=== PATIENT | male | born 1990 | race Caucasian/White ===

== ENCOUNTER 2016-12-14 13:43 | Emergency (ER) | payer OTHER ==
[~2016-12-14 13:43] MED LIST: ISOSORBIDE MONO30 MG PO; LOPRESSOR25 MG PO; ULTRAM EQIVALEN50 MG PO
--- NOTE | 2016-12-14 15:05 | ED ORDER SUMMARY ---
..... Patient: YANELIS ALEGRE OrderSheet [facility] VisitID: [id number] [address] [place] [address] 26y, M Registration Date/Time: 12/14/2016 ORDER SHEET Weight: 81.6 kg (stated) Allergies: No Known Drug Allergy GENERAL ORDERS: Group Counselor (Continuous) (14:04 12/14/2016 HBivens A.R.N.P.) (14:06 MCook R.N.) (14:06 KHoerner) CBC w Diff Urgent (14:04 12/14/2016 HBivens A.R.N.P.) (14:06 MCook R.N.) (Ack 14:06 KHoerner) CMP Urgent (14:04 12/14/2016 HBivens A.R.N.P.) (14:06 MCook R.N.) (Ack 14:06 KHoerner) UA-Culture if indicated Urgent (14:04 12/14/2016 HBivens A.R.N.P.) (Ack 14:06 KHoerner) (Sent 14:45 MCook R.N.) (14:45 MCook R.N.) D-Dimer Urgent (14:04 12/14/2016 HBivens A.R.N.P.) (14:06 MCook R.N.) (Ack 14:06 KHoerner) Amylase Urgent (14:04 12/14/2016 HBivens A.R.N.P.) (14:06 MCook R.N.) (Ack 14:06 KHoerner) EKG - ER Stat (15:00 12/14/2016 LNations ER Tech1 per protocol) (15:00 LNations ER Tech1) MEDICATION ORDERS: GI Cocktail WHITE PO 30 mL with Lidocaine Viscous Mouth/Throat 15 mL, Maalox Plus Oral 15 mL (NOW) (14:04 12/14/2016 HBivens A.R.N.P.) (14:17 MCook R.N.) IV FLUIDS: IV Saline Lock (14:04 12/14/2016 HBivens A.R.N.P.) (14:17 Cade R.N.) Protonix IVP 40mg 40 mg (Mix in NS 10ml over 2min) (14:05 12/14/2016 HBivens A.R.N.P.) (14:14 Cade R.N.) ORDER SHEET NOTES: [Electronically signed by Uriel Villanueva R.N. (16:15 12/14/2016)] [Electronically signed by Juany Horton.R.N.PBenigno (16:23 12/14/2016)] [Electronically locked/signed by Uriel Villanueva R.N. (16:15 12/14/2016)]
--- NOTE | 2016-12-14 15:05 | ED ORDER SUMMARY ---
..... Patient: YANELIS ALEGRE OrderSheet [facility] VisitID: [id number] [address] [place] [address] 26y, M Registration Date/Time: 12/14/2016 ORDER SHEET Weight: 81.6 kg (stated) Allergies: No Known Drug Allergy GENERAL ORDERS: Landing Signal Officer (Continuous) (14:04 12/14/2016 HBivens A.R.N.P.) (14:06 MCook R.N.) (14:06 KHoerner) CBC w Diff Urgent (14:04 12/14/2016 HBivens A.R.N.P.) (14:06 MCook R.N.) (Ack 14:06 KHoerner) CMP Urgent (14:04 12/14/2016 HBivens A.R.N.P.) (14:06 MCook R.N.) (Ack 14:06 KHoerner) UA-Culture if indicated Urgent (14:04 12/14/2016 HBivens A.R.N.P.) (Ack 14:06 KHoerner) (Sent 14:45 MCook R.N.) (14:45 MCook R.N.) D-Dimer Urgent (14:04 12/14/2016 HBivens A.R.N.P.) (14:06 MCook R.N.) (Ack 14:06 KHoerner) Amylase Urgent (14:04 12/14/2016 HBivens A.R.N.P.) (14:06 MCook R.N.) (Ack 14:06 KHoerner) EKG - ER Stat (15:00 12/14/2016 LNations ER Tech1 per protocol) (15:00 LNations ER Tech1) MEDICATION ORDERS: GI Cocktail WHITE PO 30 mL with Lidocaine Viscous Mouth/Throat 15 mL, Maalox Plus Oral 15 mL (NOW) (14:04 12/14/2016 HBivens A.R.N.P.) (14:17 MCook R.N.) IV FLUIDS: IV Saline Lock (14:04 12/14/2016 HBivens A.R.N.P.) (14:17 Cade R.N.) Protonix IVP 40mg 40 mg (Mix in NS 10ml over 2min) (14:05 12/14/2016 HBivens A.R.N.P.) (14:14 Cade R.N.) ORDER SHEET NOTES: [Electronically signed by Uriel Villanueva R.N. (16:15 12/14/2016)] [Electronically signed by Juany Horton.R.N.PBenigno (16:23 12/14/2016)] [Electronically locked/signed by Uriel Villanueva R.N. (16:15 12/14/2016)]
--- NOTE | 2016-12-14 15:05 | ED CLINICAL REPORT ---
Clinical Report - Physicians/Mid Levels [facility] [address] [place] [address] 12/14/2016 13:50 Patient: YANELIS ALEGRE Time Seen: 1355; upon arrival, initial patient contact, initial documentation, patient care assumed. Arrived- By private vehicle. Historian- patient. HISTORY OF PRESENT ILLNESS Chief Complaint: ABDOMINAL PAIN. At its maximum, severity described as severe. When seen in the E.D., severity described as moderate. Modifying factors. Not worsened by anything. Not relieved by anything. This started years ago and is still present. It was abrupt in onset and has been intermittent. It is described as "pain" and it is described as located in the epigastric area and radiating to the upper back. No nausea, loss of appetite, vomiting or diarrhea. (says when abd pain comes on, it makes his heart rate go up had US done on abd everything ok, supposed to have scope done, but nothing scheduled yet). No recent travel. Similar symptoms previously: Chronically, as bad. ( as seen meter mechanic for rapid heart rate, everything checked out normal, was placed on metoprolol, but stopped it on his own because it dropped his heart rate too much). Recent medical care: The patient was seen recently in a clinic. 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 REVIEW OF SYSTEMS No constipation, black stools, hematemesis, difficulty with urination or pain with urination. No urinary frequency, bloody stools, fever, chest pain or difficulty breathing. All systems otherwise negative, except as recorded above. PAST HISTORY See nurses notes. PROBLEMS: Hypertension. Abdominal Pain. Palpitations. Dental Caries. Dental Pain. Gastroenteritis. Fever. Gastroesophageal Reflux Disease. Immunizations. --13:58 Uriel Villanueva R.N. Anxiety Reaction [RuleOut]. Sinus Tachycardia [RuleOut]. --13:58 Uriel Villanueva R.N. ADDITIONAL SURGERIES: Tonsillectomy. --13:58 Uriel Villanueva R.N. SOCIAL HISTORY Never smoker. Occasional alcohol use. No drug use. No recent travel. Is a local resident. FAMILY HISTORY Negative. ADDITIONAL NOTES The nursing notes have been reviewed with agreement regarding the chief complaint, HPI, ROS, PMH and patient medications and allergies. PHYSICAL EXAM Vital Signs: 12/14/2016 13:55 BP: 151/96. HR: 111. RR: 18. O2 saturation: 100%. Temp: 97.9 F. Pain level now: 8/10. Have been reviewed as abnormal and appear to be correct. Hypertensive. Tachycardic. Respiratory rate normal. Temperature normal. Oxygen saturation normal. Appearance: Alert. Oriented X3. No acute distress. Eyes: Pupils equal, round and reactive to light. Eyes normal inspection. Neck: Normal inspection. Neck supple. CVS: Heart rate / rhythm abnormal. Tachycardia (ventricular rate = 110). Heart sounds normal. Pulses normal. Respiratory: No respiratory distress. Breath sounds normal. Chest nontender. Abdomen: Soft. Mild tenderness in the epigastric area. Bowel sounds normal. No organomegaly. No mass. Tenderness present. Back: Normal inspection. Skin: Skin warm and dry. Normal skin color. No rash. Normal skin turgor. Extremities: Extremities exhibit normal ROM. No lower extremity edema. Neuro: Oriented X 3. No motor deficit. No sensory deficit. LABS, X-RAYS, AND EKG EKG: EKG time: (1356). No acute process. No acute ischemia. Normal EKG. Regular narrow-complex tachycardia (107 ventricular rate). Sinus tachycardia. EKG unchanged when compared with prior EKG. 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 The study has been interpreted contemporaneously by me (and dr garg). The EKG appears to be a good tracing. Interpretation time: 1358. Laboratory Tests: UA-Culture if indicated: (TWAN: 12/14/2016 14:30) ( MsgRcvd 12/14/2016 14:51) Final results Test Result Flag Units (Reference) URINE COLOR YELLOW URINE APPEARANCE CLEAR URINE GLUCOSE NEGATIVE (NEGATIVE) URINE BILIRUBIN NEGATIVE (NEGATIVE) URINE KETONE NEGATIVE (NEGATIVE) URINE SPECIFIC GRAVITY 1.020 (1.010-1.030) URINE PH 8.5 H (5.0-8.0) URINE PROTEIN NEGATIVE (NEGATIVE) URINE UROBILINOGEN 0.2 EU/dL (0.2-1.0) URINE NITRITE NEGATIVE (NEGATIVE) URINE BLOOD NEGATIVE (NEGATIVE) URINE LEUK ESTERASE NEGATIVE (NEGATIVE) URINE RBC NONE SEEN rbc/hpf (0-1) URINE WBC RARE wbc/hpf (0-1) URINE EPITHELIAL CELLS RARE EPI/hpf (0-5) URINE BACTERIA NONE SEEN (NONE SEEN) URINE COMMENT CULT NOT INDICATED URINE CULTURES ARE SET-UP BASED ON THE FOLLOWING CRITERIA:POSITIVE NITRITEPOSITIVE LEUKOCYTE ESTERASEGREATER THAN 10 WHITE BLOOD CELLSMODERATE (2+) OR GREATER BACTERIA CBC w Diff: (TWAN: 12/14/2016 14:00) ( [facility] [place] 14:45) Final results Test Result Flag Units (Reference) WHITE BLOOD COUNT 7.7 K/uL (4.5-11.5) RED BLOOD COUNT 5.25 M/uL (4.50-5.90) HEMOGLOBIN 15.2 gm/dL (13.5-17.5) HEMATOCRIT 45.6 % (41.0-53.0) MEAN CELL VOLUME 87 fL (80-100) MEAN CORPUSCULAR HGB 29 pg (26-34) MEAN CORPUSCULAR HGB CONC 33 g/dL (31-37) RED CELL DISTRIBUTION WIDTH 11.7 % (11.6-14.8) PLATELET COUNT 265 K/uL (150-400) NEUTROPHIL % 70.9 % (50-75) LYMPH % 21.9 L % (25-40) MONO % 5.8 % (3-14) EOSINOPHIL % 0.9 % (0-4) BASOPHIL % 0.5 % (0-2) [id number]: (TWAN: 12/14/2016 14:00) ( [facility] [place] [facility] [place]14[place] 14:52) Final results Test Result Flag Units (Reference) D-DIMER QUANTITATIVE < 0.27 L ug/mLFEU (0.27-0.52) The primary value of this quantitative assay relates toits negative predictive value (i.e. exclusion) of pulmonaryembolism/deep vein thrombosis/DIC.Elevated levels of d-dimer may also occur with:, age, cancer, inflammation, liver disease,post-op, infection, hematoma, coronary disease, peripheralarteriopathy, bleeding disorders and thrombolytic treatment.Results should be correlated with other clinical andradiological data.Testing Methodology: Latex Immunoassay CMP: (TWAN: 12/14/2016 14:00) ( MsgRcvd 12/14/2016 14:58) Final results Test Result Flag Units (Reference) GLUCOSE 106 mg/dL (70-110) BUN 12 mg/dL (7-18) CREATININE 1.0 mg/dL (0.6-1.3) Estimated GFR >60 mL/min Estimated GFR- >60 mL/min Note: Persistent reduction over 3 months in eGFR<60 mL/min/1.73 m2 defines CKD. Patients with eGFR values>=60 mL/min/1.73 m2 may also have CKD if evidence ofpersistent proteinuria. Additional information may be foundat www.[email or web address].org. SODIUM 145 mmol/L (136-145) POTASSIUM 4.0 mmol/L (3.5-5.1) CHLORIDE 107 mmol/L (98-107) CARBON DIOXIDE 28 mmol/L (21-32) CALCIUM 8.7 mg/dL (8.5-10.1) TOTAL PROTEIN 7.5 g/dL (6.4-8.2) ALBUMIN 4.2 g/dL (3.3-5.0) BILIRUBIN, TOTAL 0.9 mg/dL (0.0-1.0) ALKALINE PHOSPHATASE 85 U/L (46-116) AST (SGOT) 20 U/L (15-37) ALT (SGPT) 27 U/L (12-78) AMYLASE 70 U/L (25-115) . PROGRESS AND PROCEDURES Course of Care: 14:40 12/14/16. pt has alfredo with recommendations that no controlled substances be given for subjective pain issues, pt is in consistent care program, has #9 er visits, see report for full details. 12/14/2016 14:26 BP: 142/62. HR: 96. RR: 16. O2 saturation: 99%. Pain level now: 8/10. Vital Signs: have been reviewed as normal and appear to be correct. Patient counseled in person regarding the patient's stable condition, test results and diagnosis. Differential Diagnosis: I considered gastritis, gastroenteritis, peptic ulcer disease, gastroesophageal reflux disease, biliary colic, cholecystitis, cholelithiasis, hepatitis, pancreatitis, common bile duct obstruction, cholangitis, hernia, myocardial infarction and viral syndrome as a possible cause of abdominal pain in this patient. This is a partial list of diagnoses considered. Above considerations are based on history, physical exam, reassessment, laboratory data and EKG. Differential diagnosis was discussed with patient. Disposition: Discharged home in good and improved condition (15:04). Condition: good and stable. CLINICAL IMPRESSION Chronic epigastric abdominal pain of unknown cause. INSTRUCTIONS (htn). Warnings: GENERAL WARNINGS: Return or contact your physician immediately if your condition worsens or changes unexpectedly, if not improving as expected, or if other problems arise. SPECIFICALLY, return if you develop pain in the abdomen or pelvis, fever, the inability to keep fluids down, blood in vomitus, blood in diarrhea, fainting or lightheadedness. Prescription Medications: Pepcid 20 mg tablets: Take 1 orally every 12 hours. Dispense thirty (30). No refills. Substitution is permissible. Follow-up: Follow up with your doctor in about two days even if well. Call for an appointment. Summary of care provided to patient. Understanding of the discharge instructions verbalized by patient. (Electronically signed by Juany Horton A.R.N.P. 12/14/2016 16:23)
--- NOTE | 2016-12-14 15:05 | ED NURSING NOTES ---
Clinical Report - Nurses [facility] [place] [address] 12/14/2016 13:50 Patient: YANELIS ALEGRE TRIAGE Triage time 13:55 Dec 14 2016. Acuity: LEVEL 3. Chief Complaint: CHEST PAIN and DISCOMFORT and (epigastric pain that radiates to back). Alert. No acute distress. SEPSIS SCREEN: Sepsis Screen. Negative (no infection suspected/documented). --14:01 Uriel Villanueva R.N. 13:55 12/14/16. BP: 151/96. HR: 111. RR: 18. O2 saturation: 100% on room air. Temp: 97.9 F. Pain level now: 03/11. --14:01 Uriel Villanueva R.N. Weight: 81.6 kg stated. Height/Length: 76 inches Per Patient. BMI: 21.9. --13:54 Uriel Villanueva R.N. Medications Metoprolol (Pt stopped taking on his own). --13:59 Uriel Villanueva R.N. Allergies No Known Drug Allergy. --13:58 Uriel Villanueva R.N. History Arrived by EMS. Historian: EMS. This started today. ( Pt was seen at [facility] for "heart racing" and epigastric pain. Pt has a hx of these episodes, has seen a Insights Analyst for these problems but has never received a concrete dx, per Pt and EMS.). PAST MEDICAL HX: Immunizations: up-to-date. SOCIAL HX: Never smoker. Alcohol use; consumes beer occasionally. No drug use. No infectious disease exposure. ABUSE ASSESSMENT: Abuse assessment: The patient was asked "Do you feel safe in your home?". No report of abuse. SELF HARM ASSESSMENT: A self harm assessment was performed. The patient answered "no" to the question "Have you recently felt down, depressed, or hopeless?". FALL RISK ASSESSMENT: Fall risk assessment completed. No fall risk identified. NUTRITIONAL RISK ASSESSMENT: The nutritional risk assessment revealed no deficiencies. FUNCTIONAL ASSESSMENT: Functional assessment: no impairments noted. LEARNING NEEDS ASSESSMENT: The learning needs assessment revealed no barriers. SKIN INTEGRITY ASSESSMENT: Skin integrity risk assessment completed. No skin integrity risk identified. --14:01 Uriel Villanueva R.N. PROBLEMS: Hypertension. Abdominal Pain. Palpitations. Dental Caries. Dental Pain. Gastroenteritis. Fever. Gastroesophageal Reflux Disease. Immunizations. --13:58 Uriel Villanueva R.N. Anxiety Reaction [RuleOut]. Sinus Tachycardia [RuleOut]. --13:58 Uriel Villanueva R.N. ADDITIONAL SURGERIES: Tonsillectomy. --13:58 Uriel Villanueva R.N. Assessment The patient states feels the same. --14:01 Uriel Villanueva R.N. Interventions ID band on patient. To treatment room. --14:01 Uriel Villanueva R.N. PHYSICAL ASSESSMENT To room via stretcher. GENERAL / NEURO / PSYCH: Alert. Oriented X 4. Appears in distress. RESPIRATORY: Mild respiratory distress. Breath sounds within normal limits. CVS: Cardiac rhythm: sinus tachycardia. GI / : Abdominal tenderness in the epigastric area. EXTREMITIES: No lower extremity edema. SKIN: Skin is warm and dry. ( flushed). --14:02 Uriel Villanueva R.N. NURSING PROGRESS NOTES The plan of care for this patient has been created. Monitoring of patient in place. Patient gowned. Head of bed elevated. Reassurance given. Two patient identifiers checked. Call light placed in reach. Side rails up x 2. Bed placed in lowest position. Patient ready for evaluation- RECRUITMENT ADVERTISING MANAGER notified. ( RECRUITMENT ADVERTISING MANAGER at bedside, monitoring in place, IVIP, labs drawn, WCTM.). --14:03 Uriel Villanueva R.N. EKG time: (1356). EKG was ordered, performed by a tech and shown to the ED physician. --14:07 Paty Pillai ER Tech1 14:11 12/14/2016 Site #1 started prior to arrival in doctor's office via IV in the right antecubital space with an 18g angiocath, with aseptic technique and good blood return; one attempt. Blood drawn: rainbow set. Labeled in the presence of the patient and sent to the lab. Saline lock flushed with 10 mL saline. --14:11 Uriel Villanueva R.N. 14:12 12/14/2016 PROTONIX (Pantoprazole Sodium) IVP 40 mg given over 2 minute(s) via site #1. Allergies verified and confirmed 5 rights. IV patency established. IV site checked: no pain, redness, or swelling. IV flushed thoroughly pre- and post-medication administration. IVP given by RN. --14:14 Uriel Villanueva R.N. 14:17 12/14/2016 GI COCKTAIL WHITE (Simethicone) PO Oral Suspension 30 mL given. Allergies verified and confirmed 5 rights. --14:17 Uriel Villanueva R.N. Patient ID band checked for patient name and birthdate: patient confirmed. Instructions provided to collect clean catch urine and patient verbalized understanding. Clean catch urine collected; sample sent to lab for urinalysis. Specimen labeled in the presence of the patient. ( Pt resting in room, c/o intermittent discomfort, Pt is unable to verbalize exactly what the discomfort is, just states that he feels something similar to an adrenaline todd just before his heart starts to race. Monitoring in place.). --14:22 Uriel Villanueva R.N. 14:26 12/14/16. BP: 142/62. HR: 96. RR: 16. O2 saturation: 99% on room air. Pain level now: 03/11. --14:27 Uriel Villanueva R.N. 15:06 12/14/2016 PROTONIX IVP Response: no adverse reaction symptoms have improved. --15:21 Uriel Villanueva R.N. 15:06 12/14/2016 GI COCKTAIL WHITE PO Response: no adverse reaction symptoms have improved. --15:21 Uriel Villanueva R.N. 15:22 12/14/2016 Site #1 removed upon discharge. Bandage applied. --15:22 Uriel Villanueva R.N. DISPOSITION / DISCHARGE 15:14 12/14/16. BP: 137/72. HR: 100. RR: 16. O2 saturation: 99% on room air. Temp: 98 F. Pain level now: 03/11. --15:15 Uriel Villanueva R.N. Departure time: 15:Dec 14 2016. Condition at departure: stable. The goals identified in the patient's plan of care were met. No learning barriers present. Discharge instructions provided and reviewed with the patient. Reviewed medication(s) side effects, precautions, dosing and course information. Prescription(s) given to the patient. Reviewed referral to a primary care physician for followup (Recommended Pt F/U with specialist(s) for management of this condition (Pt to see Insights Analyst/GI on 12/31/16.)). Patient verbalized understanding. Written instructions provided in Portuguese. The patient was discharged by the nurse practitioner. He was discharged home and accompanied by building maintenance repairer. He left the Emergency Department ambulatory and via private vehicle. Slot Host driving. ( Pt dc'd in stable condition, ambulatory, VSS, HR still tachy, provider is aware. Discussed reasons for Pt to return to ED or other provider's office, Pt verbalized understanding, called a friend for a ride home.). --15:21 Uriel Villanueva R.N. Locked/Released at 12/14/2016 16:15 by Uriel Villanueva R.N.
--- NOTE | 2016-12-14 15:05 | ED NURSING NOTES ---
Clinical Report - Nurses [facility] [place] [address] 12/14/2016 13:50 Patient: YANELIS ALEGRE TRIAGE Triage time 13:55 Dec 14 2016. Acuity: LEVEL 3. Chief Complaint: CHEST PAIN and DISCOMFORT and (epigastric pain that radiates to back). Alert. No acute distress. SEPSIS SCREEN: Sepsis Screen. Negative (no infection suspected/documented). --14:01 Uriel Villanueva R.N. 13:55 12/14/16. BP: 151/96. HR: 111. RR: 18. O2 saturation: 100% on room air. Temp: 97.9 F. Pain level now: 03/11. --14:01 Uriel Villanueva R.N. Weight: 81.6 kg stated. Height/Length: 76 inches Per Patient. BMI: 21.9. --13:54 Uriel Villanueva R.N. Medications Metoprolol (Pt stopped taking on his own). --13:59 Uriel Villanueva R.N. Allergies No Known Drug Allergy. --13:58 Uriel Villanueva R.N. History Arrived by EMS. Historian: EMS. This started today. ( Pt was seen at [facility] for "heart racing" and epigastric pain. Pt has a hx of these episodes, has seen a Public Events Facilities Rental Manager for these problems but has never received a concrete dx, per Pt and EMS.). PAST MEDICAL HX: Immunizations: up-to-date. SOCIAL HX: Never smoker. Alcohol use; consumes beer occasionally. No drug use. No infectious disease exposure. ABUSE ASSESSMENT: Abuse assessment: The patient was asked "Do you feel safe in your home?". No report of abuse. SELF HARM ASSESSMENT: A self harm assessment was performed. The patient answered "no" to the question "Have you recently felt down, depressed, or hopeless?". FALL RISK ASSESSMENT: Fall risk assessment completed. No fall risk identified. NUTRITIONAL RISK ASSESSMENT: The nutritional risk assessment revealed no deficiencies. FUNCTIONAL ASSESSMENT: Functional assessment: no impairments noted. LEARNING NEEDS ASSESSMENT: The learning needs assessment revealed no barriers. SKIN INTEGRITY ASSESSMENT: Skin integrity risk assessment completed. No skin integrity risk identified. --14:01 Uriel Villanueva R.N. PROBLEMS: Hypertension. Abdominal Pain. Palpitations. Dental Caries. Dental Pain. Gastroenteritis. Fever. Gastroesophageal Reflux Disease. Immunizations. --13:58 Uriel Villanueva R.N. Anxiety Reaction [RuleOut]. Sinus Tachycardia [RuleOut]. --13:58 Uriel Villanueva R.N. ADDITIONAL SURGERIES: Tonsillectomy. --13:58 Uriel Villanueva R.N. Assessment The patient states feels the same. --14:01 Uriel Villanueva R.N. Interventions ID band on patient. To treatment room. --14:01 Uriel Villanueva R.N. PHYSICAL ASSESSMENT To room via stretcher. GENERAL / NEURO / PSYCH: Alert. Oriented X 4. Appears in distress. RESPIRATORY: Mild respiratory distress. Breath sounds within normal limits. CVS: Cardiac rhythm: sinus tachycardia. GI / : Abdominal tenderness in the epigastric area. EXTREMITIES: No lower extremity edema. SKIN: Skin is warm and dry. ( flushed). --14:02 Uriel Villanueva R.N. NURSING PROGRESS NOTES The plan of care for this patient has been created. Monitoring of patient in place. Patient gowned. Head of bed elevated. Reassurance given. Two patient identifiers checked. Call light placed in reach. Side rails up x 2. Bed placed in lowest position. Patient ready for evaluation- DECORATING INSTRUCTOR notified. ( DECORATING INSTRUCTOR at bedside, monitoring in place, IVIP, labs drawn, WCTM.). --14:03 Uriel Villanueva R.N. EKG time: (1356). EKG was ordered, performed by a tech and shown to the ED physician. --14:07 Paty Pillai ER Tech1 14:11 12/14/2016 Site #1 started prior to arrival in doctor's office via IV in the right antecubital space with an 18g angiocath, with aseptic technique and good blood return; one attempt. Blood drawn: rainbow set. Labeled in the presence of the patient and sent to the lab. Saline lock flushed with 10 mL saline. --14:11 Uriel Villanueva R.N. 14:12 12/14/2016 PROTONIX (Pantoprazole Sodium) IVP 40 mg given over 2 minute(s) via site #1. Allergies verified and confirmed 5 rights. IV patency established. IV site checked: no pain, redness, or swelling. IV flushed thoroughly pre- and post-medication administration. IVP given by RN. --14:14 Uriel Villanueva R.N. 14:17 12/14/2016 GI COCKTAIL WHITE (Simethicone) PO Oral Suspension 30 mL given. Allergies verified and confirmed 5 rights. --14:17 Uriel Villanueva R.N. Patient ID band checked for patient name and birthdate: patient confirmed. Instructions provided to collect clean catch urine and patient verbalized understanding. Clean catch urine collected; sample sent to lab for urinalysis. Specimen labeled in the presence of the patient. ( Pt resting in room, c/o intermittent discomfort, Pt is unable to verbalize exactly what the discomfort is, just states that he feels something similar to an adrenaline todd just before his heart starts to race. Monitoring in place.). --14:22 Uriel Villanueva R.N. 14:26 12/14/16. BP: 142/62. HR: 96. RR: 16. O2 saturation: 99% on room air. Pain level now: 03/11. --14:27 Uriel Villanueva R.N. 15:06 12/14/2016 PROTONIX IVP Response: no adverse reaction symptoms have improved. --15:21 Uriel Villanueva R.N. 15:06 12/14/2016 GI COCKTAIL WHITE PO Response: no adverse reaction symptoms have improved. --15:21 Uriel Villanueva R.N. 15:22 12/14/2016 Site #1 removed upon discharge. Bandage applied. --15:22 Uriel Villanueva R.N. DISPOSITION / DISCHARGE 15:14 12/14/16. BP: 137/72. HR: 100. RR: 16. O2 saturation: 99% on room air. Temp: 98 F. Pain level now: 03/11. --15:15 Uriel Villanueva R.N. Departure time: 15:Dec 14 2016. Condition at departure: stable. The goals identified in the patient's plan of care were met. No learning barriers present. Discharge instructions provided and reviewed with the patient. Reviewed medication(s) side effects, precautions, dosing and course information. Prescription(s) given to the patient. Reviewed referral to a primary care physician for followup (Recommended Pt F/U with specialist(s) for management of this condition (Pt to see Public Events Facilities Rental Manager/GI on 12/31/16.)). Patient verbalized understanding. Written instructions provided in Kinyarwanda. The patient was discharged by the nurse practitioner. He was discharged home and accompanied by fbi profiler. He left the Emergency Department ambulatory and via private vehicle. Training Developer driving. ( Pt dc'd in stable condition, ambulatory, VSS, HR still tachy, provider is aware. Discussed reasons for Pt to return to ED or other provider's office, Pt verbalized understanding, called a friend for a ride home.). --15:21 Uriel Villanueva R.N. Locked/Released at 12/14/2016 16:15 by Uriel Villanueva R.N.
--- NOTE | 2016-12-14 15:05 | ED CLINICAL REPORT ---
Clinical Report - Physicians/Mid Levels [facility] [address] [place] [address] 12/14/2016 13:50 Patient: YANELIS ALEGRE Time Seen: 1355; upon arrival, initial patient contact, initial documentation, patient care assumed. Arrived- By private vehicle. Historian- patient. HISTORY OF PRESENT ILLNESS Chief Complaint: ABDOMINAL PAIN. At its maximum, severity described as severe. When seen in the E.D., severity described as moderate. Modifying factors. Not worsened by anything. Not relieved by anything. This started years ago and is still present. It was abrupt in onset and has been intermittent. It is described as "pain" and it is described as located in the epigastric area and radiating to the upper back. No nausea, loss of appetite, vomiting or diarrhea. (says when abd pain comes on, it makes his heart rate go up had US done on abd everything ok, supposed to have scope done, but nothing scheduled yet). No recent travel. Similar symptoms previously: Chronically, as bad. ( as seen slab grinder for rapid heart rate, everything checked out normal, was placed on metoprolol, but stopped it on his own because it dropped his heart rate too much). Recent medical care: The patient was seen recently in a clinic. 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 REVIEW OF SYSTEMS No constipation, black stools, hematemesis, difficulty with urination or pain with urination. No urinary frequency, bloody stools, fever, chest pain or difficulty breathing. All systems otherwise negative, except as recorded above. PAST HISTORY See nurses notes. PROBLEMS: Hypertension. Abdominal Pain. Palpitations. Dental Caries. Dental Pain. Gastroenteritis. Fever. Gastroesophageal Reflux Disease. Immunizations. --13:58 Uriel Villanueva R.N. Anxiety Reaction [RuleOut]. Sinus Tachycardia [RuleOut]. --13:58 Uriel Villanueva R.N. ADDITIONAL SURGERIES: Tonsillectomy. --13:58 Uriel Villanueva R.N. SOCIAL HISTORY Never smoker. Occasional alcohol use. No drug use. No recent travel. Is a local resident. FAMILY HISTORY Negative. ADDITIONAL NOTES The nursing notes have been reviewed with agreement regarding the chief complaint, HPI, ROS, PMH and patient medications and allergies. PHYSICAL EXAM Vital Signs: 12/14/2016 13:55 BP: 151/96. HR: 111. RR: 18. O2 saturation: 100%. Temp: 97.9 F. Pain level now: 8/10. Have been reviewed as abnormal and appear to be correct. Hypertensive. Tachycardic. Respiratory rate normal. Temperature normal. Oxygen saturation normal. Appearance: Alert. Oriented X3. No acute distress. Eyes: Pupils equal, round and reactive to light. Eyes normal inspection. Neck: Normal inspection. Neck supple. CVS: Heart rate / rhythm abnormal. Tachycardia (ventricular rate = 110). Heart sounds normal. Pulses normal. Respiratory: No respiratory distress. Breath sounds normal. Chest nontender. Abdomen: Soft. Mild tenderness in the epigastric area. Bowel sounds normal. No organomegaly. No mass. Tenderness present. Back: Normal inspection. Skin: Skin warm and dry. Normal skin color. No rash. Normal skin turgor. Extremities: Extremities exhibit normal ROM. No lower extremity edema. Neuro: Oriented X 3. No motor deficit. No sensory deficit. LABS, X-RAYS, AND EKG EKG: EKG time: (1356). No acute process. No acute ischemia. Normal EKG. Regular narrow-complex tachycardia (107 ventricular rate). Sinus tachycardia. EKG unchanged when compared with prior EKG. 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 The study has been interpreted contemporaneously by me (and dr garg). The EKG appears to be a good tracing. Interpretation time: 1358. Laboratory Tests: UA-Culture if indicated: (TWAN: 12/14/2016 14:30) ( MsgRcvd 12/14/2016 14:51) Final results Test Result Flag Units (Reference) URINE COLOR YELLOW URINE APPEARANCE CLEAR URINE GLUCOSE NEGATIVE (NEGATIVE) URINE BILIRUBIN NEGATIVE (NEGATIVE) URINE KETONE NEGATIVE (NEGATIVE) URINE SPECIFIC GRAVITY 1.020 (1.010-1.030) URINE PH 8.5 H (5.0-8.0) URINE PROTEIN NEGATIVE (NEGATIVE) URINE UROBILINOGEN 0.2 EU/dL (0.2-1.0) URINE NITRITE NEGATIVE (NEGATIVE) URINE BLOOD NEGATIVE (NEGATIVE) URINE LEUK ESTERASE NEGATIVE (NEGATIVE) URINE RBC NONE SEEN rbc/hpf (0-1) URINE WBC RARE wbc/hpf (0-1) URINE EPITHELIAL CELLS RARE EPI/hpf (0-5) URINE BACTERIA NONE SEEN (NONE SEEN) URINE COMMENT CULT NOT INDICATED URINE CULTURES ARE SET-UP BASED ON THE FOLLOWING CRITERIA:POSITIVE NITRITEPOSITIVE LEUKOCYTE ESTERASEGREATER THAN 10 WHITE BLOOD CELLSMODERATE (2+) OR GREATER BACTERIA CBC w Diff: (TWAN: 12/14/2016 14:00) ( [facility] 12/14/2016 14:45) Final results Test Result Flag Units (Reference) WHITE BLOOD COUNT 7.7 K/uL (4.5-11.5) RED BLOOD COUNT 5.25 M/uL (4.50-5.90) HEMOGLOBIN 15.2 gm/dL (13.5-17.5) HEMATOCRIT 45.6 % (41.0-53.0) MEAN CELL VOLUME 87 fL (80-100) MEAN CORPUSCULAR HGB 29 pg (26-34) MEAN CORPUSCULAR HGB CONC 33 g/dL (31-37) RED CELL DISTRIBUTION WIDTH 11.7 % (11.6-14.8) PLATELET COUNT 265 K/uL (150-400) NEUTROPHIL % 70.9 % (50-75) LYMPH % 21.9 L % (25-40) MONO % 5.8 % (3-14) EOSINOPHIL % 0.9 % (0-4) BASOPHIL % 0.5 % (0-2) [id number]: (TWAN: 12/14/2016 14:00) ( [facility] 12/14/2016 14:52) Final results Test Result Flag Units (Reference) D-DIMER QUANTITATIVE < 0.27 L ug/mLFEU (0.27-0.52) The primary value of this quantitative assay relates toits negative predictive value (i.e. exclusion) of pulmonaryembolism/deep vein thrombosis/DIC.Elevated levels of d-dimer may also occur with:, age, cancer, inflammation, liver disease,post-op, infection, hematoma, coronary disease, peripheralarteriopathy, bleeding disorders and thrombolytic treatment.Results should be correlated with other clinical andradiological data.Testing Methodology: Latex Immunoassay CMP: (TWAN: 12/14/2016 14:00) ( MsgRcvd 12/14/2016 14:58) Final results Test Result Flag Units (Reference) GLUCOSE 106 mg/dL (70-110) BUN 12 mg/dL (7-18) CREATININE 1.0 mg/dL (0.6-1.3) Estimated GFR >60 mL/min Estimated GFR- >60 mL/min Note: Persistent reduction over 3 months in eGFR<60 mL/min/1.73 m2 defines CKD. Patients with eGFR values>=60 mL/min/1.73 m2 may also have CKD if evidence ofpersistent proteinuria. Additional information may be foundat www.kidney.org. SODIUM 145 mmol/L (136-145) POTASSIUM 4.0 mmol/L (3.5-5.1) CHLORIDE 107 mmol/L (98-107) CARBON DIOXIDE 28 mmol/L (21-32) CALCIUM 8.7 mg/dL (8.5-10.1) TOTAL PROTEIN 7.5 g/dL (6.4-8.2) ALBUMIN 4.2 g/dL (3.3-5.0) BILIRUBIN, TOTAL 0.9 mg/dL (0.0-1.0) ALKALINE PHOSPHATASE 85 U/L (46-116) AST (SGOT) 20 U/L (15-37) ALT (SGPT) 27 U/L (12-78) AMYLASE 70 U/L (25-115) . PROGRESS AND PROCEDURES Course of Care: 14:40 12/14/16. pt has alfredo with recommendations that no controlled substances be given for subjective pain issues, pt is in consistent care program, has #9 er visits, see report for full details. 12/14/2016 14:26 BP: 142/62. HR: 96. RR: 16. O2 saturation: 99%. Pain level now: 8/10. Vital Signs: have been reviewed as normal and appear to be correct. Patient counseled in person regarding the patient's stable condition, test results and diagnosis. Differential Diagnosis: I considered gastritis, gastroenteritis, peptic ulcer disease, gastroesophageal reflux disease, biliary colic, cholecystitis, cholelithiasis, hepatitis, pancreatitis, common bile duct obstruction, cholangitis, hernia, myocardial infarction and viral syndrome as a possible cause of abdominal pain in this patient. This is a partial list of diagnoses considered. Above considerations are based on history, physical exam, reassessment, laboratory data and EKG. Differential diagnosis was discussed with patient. Disposition: Discharged home in good and improved condition (15:04). Condition: good and stable. CLINICAL IMPRESSION Chronic epigastric abdominal pain of unknown cause. INSTRUCTIONS (htn). Warnings: GENERAL WARNINGS: Return or contact your physician immediately if your condition worsens or changes unexpectedly, if not improving as expected, or if other problems arise. SPECIFICALLY, return if you develop pain in the abdomen or pelvis, fever, the inability to keep fluids down, blood in vomitus, blood in diarrhea, fainting or lightheadedness. Prescription Medications: Pepcid 20 mg tablets: Take 1 orally every 12 hours. Dispense thirty (30). No refills. Substitution is permissible. Follow-up: Follow up with your doctor in about two days even if well. Call for an appointment. Summary of care provided to patient. Understanding of the discharge instructions verbalized by patient. (Electronically signed by Juany Horton A.R.N.P. 12/14/2016 16:23)
--- NOTE | 2016-12-14 16:23 | ED DISCHARGE INSTRUCTIONS ---
Patient: YANELIS ALEGRE General Instructions [facility] VisitID: [id number] [place] [address] 26y, M Registration Date/Time: 12/14/2016 Chronic epigastric abdominal pain of unknown cause. INSTRUCTIONS (htn). Warnings: GENERAL WARNINGS: Return or contact your physician immediately if your condition worsens or changes unexpectedly, if not improving as expected, or if other problems arise. SPECIFICALLY, return if you develop pain in the abdomen or pelvis, fever, the inability to keep fluids down, blood in vomitus, blood in diarrhea, fainting or lightheadedness. Prescription Medications: Pepcid 20 mg tablets: Take 1 orally every 12 hours. Dispense thirty (30). No refills. Substitution is permissible. Follow-up: Follow up with your doctor in about two days even if well. Call for an appointment. Summary of care provided to patient. Understanding of the discharge instructions verbalized by patient. ADDITIONAL INFORMATION Abdominal Pain,Uncertain Cause [Male] Based on your visit today, the exact cause of your abdominalpain is not clear. Your exam and tests do not indicate a dangerous cause at this time. However, the signs of a serious problem may take more time to appear. Although your evaluation was reassuring today, sometimes early in the course of many conditions, exam and lab tests can appear normal. Therefore, it is important for you to watch for any new symptoms or worsening of your condition. Causes It may not be obvious what caused your symptoms. Pay attention to things that do seem to make your symptoms worse or better and discuss this with your doctor when you follow up. Diagnosis The evaluation of abdominal pain in the emergency department may onlyrequire an exam by the doctor or it may include blood, urine or imaging studies, depending on many factors. Sometimes exams and tests can identify a cause but in many cases, a clear cause is not found. Further testing at follow up visits may help to suggest a clear diagnosis. Home Care Rest as much as possible until your next exam. Try to avoid any medications (unless otherwise directed by your doctor), foods, activities, or other factors that you may have contributed to your symptoms. Try to eat foods that you know that you have tolerated well in the past. Certain diets may be recommended for some conditions that cause abdominal pain. However, since the cause of your symptoms may not be clear, discuss your diet more with your primary care provider or specialist for further recommendations. Eating several small meals per day as opposed to 2 or 3 larger meals may help. Monitor closely for anything that may make your symptoms worse or better. Pay close attention to symptoms below that may indicate worsening of your condition. Follow Up and Precautions See your doctoras instructed or sooneror if your symptoms are not improving.In some cases, you may need more testing. When to Seek Medical Attention Contact your doctor or see medical attention ifany of the following occur: Pain is becoming worse You are unable to take your medications due to excessive vomiting Swelling of the abdomen Fever of 100.4F (38C) or higher, or as directed by your health care provider Blood in vomit or bowel movements (dark red or black color) Jaundice (yellow color of eyes and skin) New onset of weakness, dizziness or fainting New onset of chest, arm, back, neck or jaw pain Epigastric Pain (Uncertain Cause) Epigastric pain can be a sign of disease in the upper abdomen. Common causes include: Acid reflux (stomach acid flowing up into the esophagus) Gastritis (irritation of the stomach lining) Peptic Ulcer Disease Inflammation of the pancreas Gallstone Infection in the gallbladder Pain may be dull or burning. It may spread upward to the chest or to the back. There may be other symptoms such as belching, bloating, cramps or hunger pains. There may be weight loss or poor appetite, nausea or vomiting. Since the diagnosis of your pain is not certain yet, further tests will be needed. Sometimes the doctor will treat you for the most likely condition to see if there is improvement before doing further tests. Home Care: Unless told otherwise, you may try antacids (Mylanta or Maalox) help neutralize stomach acid. This may relieve your pain. Take 1-2 tablespoons or tablets one hour after meals and at bedtime. The liquid form coats the stomach better than the chewable tablets and is preferred. If Tagamet (cimetidine), Zantac (ranitidine), or Carafate (sucralfate) has also been prescribed, allow one hour between taking this medicine and taking the antacids. Avoid foods that irritate the stomach. Follow a light diet until you are feeling better. Avoid alcohol, caffeine, and tobacco. Talk to your doctor before taking any [id number] medicine that contains aspirin or an anti-inflammatory drug such as ibuprofen, Advil, Motrin, Naprosyn, or Aleve. Follow Up with your doctor or as advised if you do not improve over the next 48 hours. Get Prompt Medical Attention if any of the following occur: Stomach pain worsens or moves to the right lower part of the abdomen Chest pain appears, or if it worsens or spreads to the chest, back, neck, shoulder, or arm Frequent vomiting (cant keep down liquids) Blood in the stool or vomit (red or black color) Feeling weak or dizzy, fainting, or having trouble breathing Fever of 100.4F (38C) or higher, or as directed by your healthcare provider Abdominal swelling Symptoms With Uncertain Cause [Adult] Based on the exam and any tests that were performed today, the exact cause of your symptoms is not certain. While your condition does not seem serious, the signs of a serious problem may take more time to appear. Therefore, it is important for you to watch for any new symptoms or worsening of your condition.Follow up with your doctor or this facility, as directed.A repeat physical exam or additional testing at a later time may uncover a cause for your symptoms that is not evident today. Home Care: Resume your usual activities and diet when this feels comfortable to do so. Follow Up with your doctor, or as advised by our staff.Contact your doctor sooner if your symptoms do not begin to improve in the next few days. [NOTE: If you had an x-ray, CT scan, ultrasound, or ECG (electrocardiogram), it will be reviewed by a specialist. You will be notified of any new findings that may affect your care.] Get Prompt Medical Attention if any of the following occur: Current symptoms get worse New symptoms appear Famotidine Oral tablet What is this medicine? FAMOTIDINE (fa JULIAN ti caesar) is a type of antihistamine that blocks the release of stomach acid. It is used to treat stomach or intestinal ulcers. It can also relieve heartburn from acid reflux. How should I use this medicine? Take this medicine by mouth with a glass of water. Follow the directions on the prescription label. If you only take this medicine once a day, take it at bedtime. Take your doses at regular intervals. Do not take your medicine more often than directed. Talk to your steel erecting pusher regarding the use of this medicine in children. Special care may be needed. What side effects may I notice from receiving this medicine? Side effects that you should report to your doctor or health palliative care nurse practitioner as soon as possible: agitation, nervousness confusion hallucinations skin rash, itching Side effects that usually do not require medical attention (report to your doctor or health palliative care nurse practitioner if they continue or are bothersome): constipation diarrhea dizziness headache What may interact with this medicine? delavirdine itraconazole ketoconazole What if I miss a dose? If you miss a dose, take it as soon as you can. If it is almost time for your next dose, take only that dose. Do not take double or extra doses. Where should I keep my medicine? Keep out of the reach of children. Store at room temperature between 15 and 30 degrees C (59 and 86 degrees F). Do not freeze. Throw away any unused medicine after the expiration date. What should I tell my health care provider before I take this medicine? They need to know if you have any of these conditions: kidney or liver disease trouble swallowing an unusual or allergic reaction to famotidine, other medicines, foods, dyes, or preservatives or trying to get breast-feeding What should I watch for while using this medicine? Tell your doctor or health palliative care nurse practitioner if your condition does not start to get better or if it gets worse. Finish the full course of tablets prescribed, even if you feel better. Do not take with aspirin, ibuprofen or other antiinflammatory medicines. These can make your condition worse. Do not smoke cigarettes or drink alcohol. These cause irritation in your stomach and can increase the time it will take for ulcers to heal. If you get black, tarry stools or vomit up what looks like coffee grounds, call your doctor or health palliative care nurse practitioner at once. You may have a bleeding ulcer. You have been given the following additional information: Abdominal Pain, Unknown Cause, (Male) Epigastric Pain (Uncertain Cause) Symptoms With Uncertain Cause Famotidine Oral tablet (Electronically signed by Juany Horton A.R.N.P. 12/14/2016 16:23)
--- NOTE | 2016-12-14 16:23 | ED MED RECONCILIATION SUMMARY ---
Patient: YANELIS ALEGRE Medication Reconciliation Report [facility] VisitID: [id number] [address] [place] [address] 26y, M Registration Date/Time: 12/14/2016 Weight: 81.6 kg Height/Length: 76 in. BMI: 21.9 ALLERGIES: No Known Drug Allergy The patient's Home Medications are listed below: THE FOLLOWING MEDICATIONS NEED TO BE RECONCILED: Metoprolol (Pt stopped taking on his own) The source(s) of the original Home Medication information: Not obtained. The following Medications were given to the patient in the Emergency Department: PROTONIX [IVP] IVP 40 mg, administered: 12/14/2016 2:12:00 PM GI COCKTAIL WHITE [PO] PO 30 mL, administered: 12/14/2016 2:17:00 PM The following Medications were prescribed to the patient: Pepcid 20 mg tablets: Take 1 orally every 12 hours. Dispense thirty (30). No refills. Substitution is permissible. -- Juany Horton A.R.N.P.
--- NOTE | 2016-12-14 16:23 | ED MAR SUMMARY ---
..... Medication Administration Record [facility] [address] [place] [address] Patient: YANELIS ALEGRE Visit ID: [id number] 26y, M Weight: 81.6 kg Height/Length: 76 in BMI: 21.9 ALLERGIES: No Known Drug Allergy Given 14:12 12/14/2016 Uriel Villanueva R.N. Medication Administered: PROTONIX [IVP] (PANTOPRAZOLE SODIUM), Dose: 40 mg IVP over 2 minute(s), Site: #1 right AC. Medication Ordered: Protonix IVP 40mg 40 mg (Mix in NS 10ml over 2min). Given 14:17 12/14/2016 Uriel Villanueva R.N. Medication Administered: GI COCKTAIL WHITE [PO] (SIMETHICONE), Dose: 30 mL Oral Suspension PO. Medication Ordered: GI Cocktail WHITE PO 30 mL with Lidocaine Viscous Mouth/Throat 15 mL, Maalox Plus Oral 15 mL (NOW).
--- NOTE | 2016-12-14 16:23 | ED MAR SUMMARY ---
..... Medication Administration Record [facility] [address] [place] [address] Patient: YANELIS ALEGRE Visit ID: [id number] 26y, M Weight: 81.6 kg Height/Length: 76 in BMI: 21.9 ALLERGIES: No Known Drug Allergy Given 14:12 12/14/2016 Uriel Villanueva R.N. Medication Administered: PROTONIX [IVP] (PANTOPRAZOLE SODIUM), Dose: 40 mg IVP over 2 minute(s), Site: #1 right AC. Medication Ordered: Protonix IVP 40mg 40 mg (Mix in NS 10ml over 2min). Given 14:17 12/14/2016 Uriel Villanueva R.N. Medication Administered: GI COCKTAIL WHITE [PO] (SIMETHICONE), Dose: 30 mL Oral Suspension PO. Medication Ordered: GI Cocktail WHITE PO 30 mL with Lidocaine Viscous Mouth/Throat 15 mL, Maalox Plus Oral 15 mL (NOW).
--- NOTE | 2016-12-14 16:23 | ED MED RECONCILIATION SUMMARY ---
Patient: YANELIS ALEGRE Medication Reconciliation Report [facility] VisitID: [id number] [address] [place] [address] 26y, M Registration Date/Time: 12/14/2016 Weight: 81.6 kg Height/Length: 76 in. BMI: 21.9 ALLERGIES: No Known Drug Allergy The patient's Home Medications are listed below: THE FOLLOWING MEDICATIONS NEED TO BE RECONCILED: Metoprolol (Pt stopped taking on his own) The source(s) of the original Home Medication information: Not obtained. The following Medications were given to the patient in the Emergency Department: PROTONIX [IVP] IVP 40 mg, administered: 12/14/2016 2:12:00 PM GI COCKTAIL WHITE [PO] PO 30 mL, administered: 12/14/2016 2:17:00 PM The following Medications were prescribed to the patient: Pepcid 20 mg tablets: Take 1 orally every 12 hours. Dispense thirty (30). No refills. Substitution is permissible. -- Juany Horton A.R.N.P.
== END 2016-12-14 15:22 | disposition home or self-care (01) ==
LOC: ED SRH 13:43
DX: R10.13 Epigastric pain (principal); I10 Essential (primary) hypertension; K21.9 Gastro-esophageal reflux disease without esophagitis
CPT/HCPCS: 90004; 90100; 91556; 92530; 95059